=== PATIENT | female | born 1990 | race Caucasian/White ===

== ENCOUNTER 2017-02-01 19:18 | Emergency (ER) | payer OTHER ==
--- NOTE | ~2017-02-01 | ER ---
PATIENT'S NAME: NICOLAS GONZALEZ [facility] AGE: 26 Y [address] ROOM: [place] [address] LOCATION: ED ADMIT DATE: 02/01/2017 ER/Outpatient Report DISCHARGE DATE: 02/01/2017 FAMILY PHYSICIAN: Miryam Mo MD ATTENDING PHYSICIAN: Dez Johnson Time of Evaluation: 1930 hours. CHIEF COMPLAINT: Headache. HISTORY OF PRESENT ILLNESS: The patient is a 26-year-old female with previous history of migraines. The patient states that today she woke up about 4 o'clock with a headache. She says she usually takes Fiorinal, which Dr. Kaiden Hansen had prescribed in the past. However, today, the pain medicine did not relieve her headache. The patient did try to go to work today, which made her more uncomfortable. Headache has been associated with nausea. She did vomit once. She does have some photophobia. Quality curiel, it is similar to previous headaches. ALLERGIES: INCLUDE PENICILLIN, BACTRIM, SULFA. MEDICAL HISTORY: Includes migraine. SURGERIES: Include tonsillectomy. SOCIAL HISTORY: Nonsmoker. Denies alcohol use. REVIEW OF SYSTEMS: GENERAL: No recent health issues, infections, fevers. HEENT: Includes acute onset of headache this morning, similar to previous. She has had some photophobia. Denies stiff neck. RESPIRATORY: Negative. CARDIOVASCULAR: Negative. GASTROINTESTINAL: Includes some nausea, vomited once. PHYSICAL EXAMINATION: VITAL SIGNS: Blood pressure is 170/89, her temperature is here 98, respiratory rate 16, pulse 92, her O2 saturations 98%. GENERAL APPEARANCE: A white female. She presents wearing sunglasses. Alert. EYES: PERRLA. No icterus. PATIENT'S NAME: NICOLAS GONZALEZ [facility] AGE: 26 Y [address] ROOM: [place] [address] LOCATION: ED ADMIT DATE: 02/01/2017 ER/Outpatient Report DISCHARGE DATE: 02/01/2017 FAMILY PHYSICIAN: Miryam Mo MD ATTENDING PHYSICIAN: Dez Johnson EARS: TMs intact. MOUTH: Oral membranes moist. Teeth in good repair. NECK: Supple. There is no rigidity. NEUROLOGIC: No focal neurological signs. ASSESSMENT: Headache, tension versus migraine. PLAN/TREATMENT: She was given Toradol 60, Phenergan 50 here in the emergency room. The patient observed for a half hour to an hour. The patient became much more comfortable and requested to go home. The patient was advised to find a quiet cool place. Follow up with her primary care if headache does not resolve by tomorrow. BONITA GRIER FOR MD DANIELLE PÉREZ/isaac /[id number] d: 02/01/171 t: 02/14/17 1215, OUTPATIENT REPORT
== END 2017-02-01 20:25 | disposition disaster alternative care site (69) ==
LOC: GMED 19:18
DX: R51 Headache (principal); Z88.0 Allergy status to penicillin; Z88.2 Allergy status to sulfonamides; Z90.89 Acquired absence of other organs; Z79.3 Long term (current) use of hormonal contraceptives; Z79.899 Other long term (current) drug therapy; Z86.69 Personal history of other diseases of the nervous system and sense organs
CPT/HCPCS: J1885; J2550